=== PATIENT | female | born 2000 | race African-American/Black ===

== ENCOUNTER 2019-10-15 17:10 | Emergency (ER) | payer OTHER ==
--- NOTE | 2019-10-15 19:06 | ED Physician Documentation ---
PD HPI CHEST PAIN - Stated complaint Stated Complaint: CP/BACK PX - Chief complaint Chief Complaint: Cardiac - History obtained from History obtained from: Patient - History of Present Illness Timing - onset: How many hours ago (few hours ago while driving. Onset pleuritic pain left chest into back, increased with movement and breathing. No recent cough, injury.), Today Timing - onset during: Light activity ( driving from [place] (so not long distance)) Timing - duration: Hours Timing - details: Abrupt onset, Still present Quality: Aching, Sharp, Pain Location: Left chest Radiation: Back Improved by: Rest Worsened by: Inspiration, Movement, Palpation. No: Eating Associated symptoms: Shortness of air. No: Nausea, Vomiting, Feeling faint / dizzy, Palpitations, Cough Similar symptoms before: No diagnosis (she says she has similar symptoms randomly, without exertion, about twice monthly and lasts hours ( better by next day at longest). No noted pattern. Has not been to PCP, not taken meds for it. Initial episode a few months ago.) Recently seen: Not recently seen Review of Systems Constitutional: denies: Fever, Chills Nose: reports: Congestion. denies: Rhinorrhea / runny nose Throat: denies: Sore throat Cardiac: reports: Chest pain / pressure (episodic, similar to today). denies: Palpitations, Pedal edema, Calf pain Respiratory: denies: Dyspnea, Cough, Wheezing GI: denies: Abdominal Pain, Nausea, Vomiting Musculoskeletal: denies: Extremity swelling Neurologic: denies: Near syncope PD PAST MEDICAL HISTORY - Past Medical History Cardiovascular: None Respiratory: None Neuro: None Endocrine/Autoimmune: None - Present Medications Home Medications: Ambulatory Orders Medication Instructions Recorded Confirmed Cetirizine [ZyrTEC] 10 mg PO DAILY #30 tablet 10/15/19 Hydrocodone/Acetaminophen 1 each PO Q6H PRN #18 tablet 10/15/19 [Hydrocodon-Acetaminophen 5-325] Ibuprofen [Motrin] 600 mg PO TID PRN #25 tab 10/15/19 dexAMETHasone [Decadron] 4 mg PO DAILY #5 tablet 10/15/19 - Allergies Allergies/Adverse Reactions: Allergies Allergy/AdvReac Type Severity Reaction Status Date / Time No Known Drug Allergies Allergy Verified 10/15/19 17:23 - Living Situation Living Arrangement: reports: At home - Social History Does the pt smoke?: No Does the pt drink ETOH?: No Does the pt have substance abuse?: No - Family History Family history: reports: CAD. denies: Sudden , Aortic aneursym, Aortic dissection PD ED PE NORMAL - Vitals Vital signs reviewed: Yes - General General: Alert and oriented X 3, Well developed/nourished, Other (appears uncomfortable with breathing and movement. ) - HEENT HEENT: Moist mucous membranes, Pharynx benign - Neck Neck: Supple, no meningeal sign, No adenopathy - Cardiac Cardiac: RRR, No murmur - Respiratory Respiratory: Clear bilaterally, Other (some chestwall tenderness left sternal border/cartilage area. ) - Abdomen Abdomen: Soft, Non tender - Derm Derm: Normal color, Warm and dry - Extremities Extremities: No tenderness to palpate, Normal ROM s pain, No edema, No calf tenderness / cord - Neuro Neuro: Alert and oriented X 3, No motor deficit, Normal speech Results - Vitals Vitals: Vital Signs - 24 hr 10/15/19 10/15/19 10/15/19 17:23 20:05 21:45 Temperature 37.1 C Heart Rate 72 87 66 Respiratory 14 18 14 Rate Blood Pressure 137/65 H 143/83 H 131/76 H O2 Saturation 100 100 100 Oxygen O2 Source Room air - EKG (time done) 17:31 Rate: Rate (enter#) (72) Rhythm: NSR Orient: Normal Intervals: Normal MD QRS: Normal Ischemia: Normal ST segments. No: ST elevation c/w ischemia, ST depression - Labs Labs: Laboratory Tests 10/15/19 10/15/19 10/15/19 19:34 19:34 19:34 WBC 9.1 RBC 4.89 Hgb 13.6 Hct 42.7 MCV 87.3 MCH 27.8 MCHC 31.9 L RDW 13.2 Plt Count 301 MPV 9.3 Neut # (Auto) 5.7 Lymph # (Auto) 2.5 [place] # (Auto) 0.7 Eos # (Auto) 0.1 Baso # (Auto) 0.0 Absolute Nucleated RBC 0.00 Nucleated RBC % 0.0 Sodium 139 Potassium 4.0 Chloride 103 Carbon Dioxide 27 Anion Gap 9.0 BUN 7 Creatinine 0.8 Estimated GFR (MDRD) 111 Glucose 89 Calcium 9.7 Total Bilirubin 0.9 AST 21 ALT 24 Alkaline Phosphatase 66 Troponin I High Sens < 2.3 L C-Reactive Protein < 1.0 Total Protein 8.2 Albumin 4.6 Globulin 3.6 Albumin/Globulin Ratio 1.3 Lipase 30 - Rads (name of study) chest xray Radiology: Prelim report reviewed (no acute process), See rad report PD MEDICAL DECISION MAKING - ED course Complexity details: considered differential (pain with breathing and movement. Negative PERC score. unusual to get same pattern of pain every couple weeks for past few months. Consider some underlying allergy or inflammation. Consider anxiety. Not sure of the cause at this point. ), d/w patient Departure - Departure Disposition: Home, Self Care Clinical Impression: Chest pain Qualifiers: Chest pain type: chest pain on breathing Qualified Code(s): R07.1 - Chest pain on breathing Condition: Stable Record reviewed to determine appropriate education?: Yes Instructions: ED Chest Pain Costochondritis Follow-Up: ANDRZEJ JORGENSEN MD [Primary Care Provider] - Prescriptions: Cetirizine [ZyrTEC] 10 mg PO DAILY #30 tablet dexAMETHasone [Decadron] 4 mg PO DAILY #5 tablet Hydrocodone/Acetaminophen [Hydrocodon-Acetaminophen 5-325] 1 each PO Q6H PRN #18 tablet PRN Reason: pain Ibuprofen [Motrin] 600 mg PO TID PRN #25 tab PRN Reason: Pain Comments: Stay well-hydrated. Use some anti-inflammatories of ibuprofen 2-3 times a day. To that add Tylenol or hydrocodone if needed for pain. He could also add Decadron steroid anti-inflammatory for a few days as well. Recheck if not improved over the next day or 2 and return if worsening. Your chest x-ray EKG and blood tests are normal with no signs of more significant cause. Presume musculoskeletal pain or some inflammation around the lungs called pleurisy. The anti-inflammatories and pain medicine would be appropriate for this. There is not an obvious reason for her recurring as it has so consider the possibility of allergy related. I would suggest taking a daily antihistamine for a month or 2 and see if you do not get other episodes. Otherwise follow-up with your primary care regarding further evaluation and particularly if not better in the next few days. Discharge Date/Time: 10/15/19 21:55
[2019-10-15] MEDS ORDERED: MORPHINE 10 MG/ML VIAL IVP STA (19:22)
[2019-10-15] MEDS ORDERED: KETOROLAC 30 MG/ML VIAL IVP STA (19:22)
[2019-10-15 19:41] LABS: BASOPHILS % (AUTO) 0.4 %; EOSINOPHILS # (AUTO) 0.1 10^3/uL (0.0-0.7); EOSINOPHILS % (AUTO) 0.7 %; HGB - HEMOGLOBIN 13.6 g/dL (12.0-16.0); LYMPHOCYTES # (AUTO) 2.5 10^3/uL (1.5-3.5); LYMPHOCYTES % (AUTO) 27.8 %; MEAN CORPUSCULAR HEMOGLOBIN 27.8 pg (27.0-31.0); MEAN CORPUSCULAR HGB CONC 31.9 g/dL (32.0-36.0); MEAN CORPUSCULAR VOLUME 87.3 fL (81.0-99.0); MEAN PLATELET VOLUME 9.3 fL (7.9-10.8); MONOCYTES # (AUTO) 0.7 10^3/uL (0.0-1.0); NEUTROPHILS # (AUTO) 5.7 10^3/uL (1.5-6.6); NEUTROPHILS % (AUTO) 62.7 %; PLT - PLATELET COUNT 301 10^3/uL (130-450); RED BLOOD COUNT 4.89 10^6/uL (4.20-5.40); RED CELL DISTRIBUTION WIDTH 13.2 % (12.0-15.0); WHITE BLOOD COUNT 9.1 x10^3/uL (4.8-10.8)
[2019-10-15 20:00] LABS: ALBUMIN 4.6 g/dL (3.2-5.5); ALBUMIN/GLOBULIN RATIO 1.3 (1.0-2.2); ALKALINE PHOSPHATASE 66 IU/L (42-121); ALT ALANINE AMINOTRANSFERASE 24 IU/L (10-60); AST ASPARTATE AMINOTRANSFERASE 21 IU/L (10-42); BILIRUBIN,TOTAL 0.9 mg/dL (0.2-1.0); BUN - BLOOD UREA NITROGEN 7 mg/dL (6-20); CALCIUM 9.7 mg/dL (8.5-10.3); CARBON DIOXIDE - CO2 27 mmol/L (21-32); CHLORIDE 103 mmol/L (101-111); CREATININE 0.8 mg/dL (0.4-1.0); GFR - MDRD 111 (>89); GLUCOSE 89 mg/dL (70-100); LIPASE 30 U/L (22-51); SODIUM 139 mmol/L (135-145); TOTAL PROTEIN 8.2 g/dL (6.7-8.2)
[2019-10-15 20:16] LABS: CRP - C-REACTIVE PROTEIN < 1.0 mg/dL (0-1.0)
--- NOTE | 2019-10-15 20:25 | XRAY Report ---
Reason: left chest pain Procedure Date: 10/15/2019 Accession Number: [id number] / [id number] Procedure: XR - Chest 2 View X-Ray CPT Code: 84269 Final Report FULL RESULT: EXAM: CHEST RADIOGRAPHY EXAM DATE: 10/15/2019 08:12 PM. CLINICAL HISTORY: Left chest pain. Left-sided chest pain today. COMPARISON: None. TECHNIQUE: 2 views. FINDINGS: Lungs/Pleura: No focal opacities evident. No pleural effusion. No pneumothorax. Normal volumes. Mediastinum: Heart and mediastinal contours are unremarkable. Other: None. IMPRESSION: Normal 2-view chest radiography. [facility]
[2019-10-15] MEDS ORDERED: HYDROcod/ACET 5/325 Prepack 4 PO STA (21:10)
[2019-10-15] MEDS ORDERED: DEXAMETHASONE 10 MG/ML VIAL IVP STA (21:10)
[2019-10-15 21:47] VITALS: BP 131/76
== END 2019-10-15 21:55 | disposition home or self-care (01) ==
LOC: ED 17:10
DX: R07.1 Chest pain on breathing (principal)
CPT/HCPCS: 36415; 71046; 80053; 83690; 84484; 85025; 86140; 93005; 96374; 99284